=== PATIENT | female | born 1980 | race Caucasian/White ===

== ENCOUNTER 2020-07-04 13:25 | Emergency (ER) | payer MEDICAID, SELFPAY ==
[2020-07-04 14:31] VITALS: BP 167/91; PULSE 81; RESP 16; TEMP 36.9; O2SAT 98; BMI 52.0
[2020-07-04 15:24] VITALS: BP 166/80; PULSE 73; RESP 16; TEMP 37.1; O2SAT 100
--- NOTE | 2020-07-04 15:34 | ED_ITS ---
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 MD Complaint: ear pain and ear discharge Location: left ear Duration: constant Severity: mild Relieving factors: nothing Exacerbating factors: nothing Discharge from ear: yes - clear (clear yellow ) Treatment prior to arrival: eardrops (analgesic ear drops ) Related Data Previous Rx's Medication Instructions Recorded acetaminophen 650 mg PO Q6H PRN #20 cap 07/04/20 amoxicillin 500 mg PO BID 7 Days #14 tab 07/04/20 ciprofloxacin-dexamethasone 4 drp OTIC (EARS) BID 7 Days #7.5 07/04/20 [Ciprodex] ml ibuprofen 600 mg PO Q8H PRN #20 tab 07/04/20 Allergies Allergy/AdvReac Type Severity Reaction Status Date / Time No Known Allergies Allergy Verified 07/04/20 14:30 Review of Systems Review of Systems: Yes all other systems are reviewed and are negative Constitutional: Constitutional: Reports no additional constitutional complaints, Denies body ache(s), Denies chills, Denies fever(s), Denies hea dache(s) and Denies weakness Eyes: Eyes: Reports no additional eye complaints and Denies change in vision ENT: Reports system reviewed and no additional complaints, except as documented, Denies dizziness, Reports ear discharge, Reports otalgia, Denies headache(s), Denies nasal congestion, Denies nasal discharge and Denies neck pain Cardiovascular: Cardiovascular: Reports no additional cardiovascular complaints, Denies chest pain, Denies leg edema and Denies dyspnea Respiratory: Respiratory: Reports no additional respiratory complaints, Denies cough and Denies dyspnea Gastrointestinal: Gastrointestinal: Reports no additional gastrointestinal complaints, Denies abdominal pain, Denies diarrhea, Denies nausea and Denies vomiting Genitourinary: Genitourinary: Reports no additional female genitourinary complaints and Denies urinary incontinence Musculoskeletal: Musculoskeletal: Reports no additional musculoskeletal complaints, Denies back pain, Denies arthralgias, Denies joint swelling, Denies neck pain, Denies numbness and Denies tingling Integumentary/Breasts: Skin/Breast: Reports system reviewed and no additional complaints, except as docu and Denies rash Neurologic: Reports system reviewed and no additional complaints, except as documented, Denies Abnormal speech present, Denies dizziness, Denies headache(s), Denies numbness, Denies tingling and Denies weakness PMFSH Past Medical History Attestation statement: The following information was validated with the patient. Source: obtained from family and nursing notes reviewed Medical History No known health problems No known health problems Social History Social History Alcohol intake: never Smoked in Last 30 Days: No Use of substances other than those prescribed or required for medical reasons: No Advance Directives: No Advance Directives Information Provided: Yes Physical Exam Vital Signs: Vital Signs: Vital Signs Temp Pulse Resp BP Pulse Ox 07/04/20 15:24 98.8 F 73 16 166/80 H 100 07/04/20 14:31 98.4 F 81 16 167/91 H 98 Body Mass Index 52.0 Const: General: cooperative, healthy appearing, comfortable and no acute distress Orientation/consciousness: patient oriented x3 Limitations: no limitations HENMT: Other: left ear canal with swelling and noted drainage. Head: Yes normal to inspection Ears: hearing grossly normal bilaterally, external ears normal, mastoids normal, no periauricular adenopathy and TM abnormal (Left ) bulging, erythematous, with fluid behind the TM and with loss of landmarks General nose exam: Normal external nose present Face and sinus: Yes normal facial exam Mouth: Normal oral and palatal mucosa present Throat: Yes posterior oropharynx normal Eyes: General: appearance normal, both eyes and all related structures Pupils: Equal, round and reactive pupils present Neck: Neck: Yes normal visual inspection Chest: Chest palpation & inspection: normal inspection of the chest Resp: Effort & Inspection: normal respiratory effort Auscultation: clear to auscultation bilaterally Cardio: Rate: regular rate Rhythm: regular rhythm Peripheral pulses: Peripheral pulses 2+ throughout GI: Inspection: Yes normal to inspection Palpation (GI): Soft to palpation and nontender Auscultation: normal bowel sounds Back/Spine/Pelvis: Thoracic/Lumbar Spine: thoracic and lumbar spine normal to inspection Skin: General skin exam: no rashes or lesions noted Neuro: General: patient oriented x3, no focal motor deficits and normal sensation to monofilament Cranial nerves: Yes Equal, round and reactive pupils present Cognition (Neuro): normal cognition Speech: No Abnormal speech present Gait exam (Neuro): Normal gait present Motor exam (neuro): 5/5 motor strength present throughout Extrem: General: Yes normal to inspection Course Course Course Narrative: L AOM, left otitis externa. Discharge Plan Discharge Clinical Impression: Otitis externa Qualifiers: Otitis externa type: unspecified type Chronicity: acute Laterality: left Qualified Code(s): H60.502 - Unspecified acute noninfective otitis externa, left ear Otitis media Qualifiers: Otitis media type: serous Chronicity: acute Laterality: left Recurrence: non- recurrent Qualified Code(s): H65.02 - Acute serous otitis media, left ear Patient Disposition: Home, Self-Care Instructions: Otitis Externa (ED), Ear Infection (ED), Serous Otitis Media (ED) Prescriptions: New amoxicillin 500 mg tablet 500 mg PO BID 7 Days Qty: 14 RF: 0 ibuprofen 600 mg tablet 600 mg PO Q8H PRN (Reason: fever or pain) Qty: 20 RF: 0 acetaminophen 325 mg capsule 650 mg PO Q6H PRN (Reason: fever or pain) Qty: 20 RF: 0 ciprofloxacin-dexamethasone [Ciprodex] 0.3-0.1 % drops,suspension 4 drp otic (ears) BID 7 Days Qty: 7.5 RF: 0 Referrals: Physician,None [Primary Care Provider] - 2 days
== END 2020-07-04 16:00 | disposition home or self-care (01) ==
PROVIDERS: Emergency Provider Emergency Medicine
DX: H60.502 Unspecified acute noninfective otitis externa, left ear (principal); H65.02 Acute serous otitis media, left ear; H92.02 Otalgia, left ear; Z79.899 Other long term (current) drug therapy
CPT/HCPCS: 99284

== ENCOUNTER 2022-10-25 07:46 | Emergency (ER) | payer MEDICAID, OTHER, SELFPAY ==
--- NOTE | ~2022-10-25 | XR_ITS ---
EXAMINATION: XR CHEST CLINICAL INFORMATION: Cough COMPARISON: None TECHNIQUE: 2 views of the chest were obtained. FINDINGS: Lungs are well expanded and clear. No pulmonary mass, consolidation or pleural effusion. There appears to be mild thickening of bronchial muse in the perihilar regions. The cardiomediastinal silhouette has normal size and contour. The pulmonary vascular pattern is normal. The visualized bones and upper abdomen are normal. XR/XR chest 2V IMPRESSION: * No evidence of pneumonia. * There is an equivocal finding of mild thickening of bronchial muse in this patient with history of cough.
[2022-10-25 07:53] VITALS: BP 157/74; PULSE 91; RESP 18; TEMP 36.6; O2SAT 98; BMI 31.3
[2022-10-25 08:28] LABS: COVID-19 Test Positive (Negative); IDNOW Serial# 16C4AD1C
[2022-10-25 08:33] LABS: IDNOW Serial# BCCEAD1C; Influenza A Negative (Negative); Influenza B2 Negative (Negative)
--- NOTE | 2022-10-25 08:40 | ED_ITS ---
HPI - General Adult General Chief complaint: Upper Respiratory Symptoms Stated complaint: Cough/Chest congestion Time Seen by Provider: 10/25/22 08:20 Source: patient Mode of arrival: ambulatory Limitations: no limitations History of Present Illness HPI narrative: Patient is a 42 year old assigned female at with no reported medical history presenting to the emergency department today with a cough, congestion, body aches, fever, and sore throat. Patient states that for the last 10 days she has been having a cough, congestion, body aches, fever, and a sore throat. Patient denies any dizziness, lightheadedness, abdominal pain, nausea, vomiting, chills, blurry vision, double vision, loss of vision, chest pain, difficulty breathing, shortness of breath, back pain, night sweats, pain with urination, increased urinary frequency, increased urinary urgency, blood in her urine or stool, syncope or a near syncopal episode, recent trauma or falls, bowel incontinence, bladder incontinence, bowel retention, bladder retention, or any other complaints at this time. Onset (ago): day(s) (10) Severity: mild Severity scale (1-10): 3 Relieving factors: none Exacerbating factors: none Associated symptoms: cough and fever/chills Treatments prior to arrival: none Related Data Previous Rx's Medication Instructions Recorded acetaminophen 325 mg capsule 650 mg PO Q6H PRN fever or pain 07/04/20 #20 caps amoxicillin 500 mg tablet 500 mg PO BID 7 days #14 tabs 07/04/20 ciprofloxacin 0.3 %-dexamethasone 4 drp otic (ears) BID 7 days #7.5 07/04/20 0.1 % ear drops,suspension mL (Ciprodex) ibuprofen 600 mg tablet 600 mg PO Q8H PRN fever or pain 07/04/20 #20 tabs benzonatate 100 mg capsule 100 mg PO BID PRN cough 7 days #14 10/25/22 caps doxycycline hyclate 100 mg tablet 100 mg PO BID 7 days #14 tabs 10/25/22 prednisone 20 mg tablet 20 mg PO DAILY 7 days #7 tabs 10/25/22 Allergies Allergy/AdvReac Type Severity Reaction Status Date / Time No Known Allergies Allergy Verified 07/04/20 14:30 Review of Systems Constitutional: Constitutional: Reports no additional constitutional complaints, Reports body ache(s), Denies chills, Reports fever(s) and Denies night sweats Eyes: Eyes: Reports no additional eye complaints, Denies blurry vision, Denies change in vision, Denies diplopia, Denies eye discharge, Denies loss of vision and Denies eye pain ENT: Denies dizziness, Reports nasal congestion and Reports sore throat Cardiovascular: Cardiovascular: Reports no additional cardiovascular complaints, Denies chest pain, Denies lightheadedness, Denies Loss of Consciousness and Denies dyspnea Respiratory: Respiratory: Reports no additional respiratory complaints, Reports cough and Denies dyspnea Gastrointestinal: Gastrointestinal: Reports no additional gastrointestinal complaints, Denies abdominal pain, Denies melena, Denies hematochezia, Denies change in bowel habits and Denies change in stool character Genitourinary: Genitourinary: Denies hematuria, Denies urinary frequency, Denies dysuria, Denies urinary incontinence, Denies urinary hesitancy and Denies urinary urgency Musculoskeletal: Musculoskeletal: Reports no additional musculoskeletal complaints, Denies numbness and Denies tingling Neurologic: Denies dizziness, Denies loss of vision, Denies numbness and Denies tingling Psychiatric: Psychiatric: Reports no additional psychiatric complaints Endocrine: Endocrine: Reports no additional endocrine complaints Hematologic/Lymphatic: Hematologic/Lymphatic: Reports no additional hematologic/lymphatic complaints Allergic/Immunologic: Allergic/Immunologic: Reports no additional allergic/immunologic complaints PMFSH Past Medical History Attestation statement: The following information was validated with the patient. Source: old records reviewed and nursing notes reviewed Medical History No known health problems No known health problems Social History Social History Alcohol intake: never Advance Directives: No Advance Directives Information Provided: Yes Physical Exam ED Vital Signs: Vital Signs - 24 hr 10/25/22 07:53 Temperature 97.8 F Pulse Rate 91 Respiratory Rate 18 Blood Pressure 157/74 H Pulse Oximetry 98 Oxygen Delivery Method Room Air BMI result Body Mass Index 31.3 Const General: cooperative, no acute distress, alert and awake Nutritional Appearance: well nourished Orientation/consciousness: patient oriented x3 Limitations: no limitations HENMT Head: Yes normal to inspection and Yes atraumatic Ears: hearing grossly normal bilaterally and external ears normal General nose exam: Normal external nose present, no nasal discharge noted and no epistaxis Face and sinus: Yes normal facial exam, No abrasion and No laceration Mouth: Normal oral and palatal mucosa present, no drooling and no muffled voice Eyes General: appearance normal, both eyes and all related structures Periorbital: periorbital findings normal Eyelids: Yes eyelids normal Conjunctivae: conjunctivae normal Pupils: Equal, round and reactive pupils present EOM: EOMs intact bilaterally Neck Neck: Yes normal visual inspection, Yes full ROM and Yes no lymphadenopathy Chest Chest palpation & inspection: normal inspection of the chest Resp Effort & Inspection: normal respiratory effort and able to speak in complete sentences Auscultation: clear to auscultation bilaterally Cardio Rate: regular rate Rhythm: regular rhythm GI Inspection: Yes normal to inspection Palpation (GI): Soft to palpation, not firm, nontender, no guarding and not rigid Neuro General: patient oriented x3 and moves all extremities Cranial nerves: Yes Equal, round and reactive pupils present Cognition (Neuro): normal cognition Motor exam (neuro): 5/5 motor strength present throughout Sensory Exam: Normal double simultaneous stimulation for sensation Coordination: [id number] test normal Extrem General: Yes normal to inspection, Yes full ROM and Yes capillary refill normal Psych Appearance: grossly normal Mental Status: mental status grossly normal Affect: normal affect Attitude: cooperative Thought process: Normal thought process present Thought content: Normal thought content present Insight: Good insight present (Psych) Medical Decision Making Medical Decision Making MDM Narrative: Patient is a 42 year old assigned female at with no reported medical history presenting to the emergency department today with a cough, congestion, body aches, fever, and a sore throat. Patient's physical exam was unremarkable. Patient's COVID-19 test was positive. Patient's chest x-ray was negative. Given the length of the patient's symptoms and persistent cough with intermittent yellow sputum production, I'll cover for super imposed bacterial infection. I explained my physical exam findings as well as all test results to the patient. I answered all questions asked by the patient. I stressed the importance of the patient taking her medication as prescribed. I stressed the importance of the patient following up with her primary care provider. I stressed the importance of the patient returning to the emergency department immediately if her symptoms were to worsen or if she were to develop any dizziness, shortness of breath, difficulty breathing, chest pain, blurry vision, loss of vision, nausea, vomiting, abdominal pain, fever, chills, back pain, or any other complaints. Patient verbalized agreement and understanding with this treatment plan and discharge. Differential Diagnosis Differential Diagnoses: The differential diagnosis associated with the presentation includes COVID-19, super imposed bacterial infection Lab Data MDM Lab Attestation statement: I reviewed the patient's lab results. Labs: Lab Results 10/25/22 10/25/22 10/25/22 Range/Units 00:26 07:58 07:58 COVID-19 ([facility]) Positive A (Negative) COVID-19 Clin Com See Note Influenza Type A ([facility]) Negative (Negative) Influenza Type B ([facility]) Negative (Negative) Influenza A & B Note See Note S. pyogenes GrpA [facility] Negative (Negative) Radiology Impression Radiologist Impression: My interpretation is in agreement with the radiologist's impression of this imaging study. EXAMINATION: XR CHEST CLINICAL INFORMATION: Cough COMPARISON: None TECHNIQUE: 2 views of the chest were obtained. FINDINGS: Lungs are well expanded and clear. No pulmonary mass, consolidation or pleural effusion. There appears to be mild thickening of bronchial muse in the perihilar regions. The cardiomediastinal silhouette has normal size and contour. The pulmonary vascular pattern is normal. The visualized bones and upper abdomen are normal. XR/XR chest 2V IMPRESSION: *? No evidence of pneumonia. *? There is an equivocal finding of mild thickening of bronchial muse in this patient with history of cough. Dictated By: Willy Leo MD Signed By: Electronically signed by Willy Loe MD 10/25/22 0900 Discharge Plan Discharge Clinical Impression: COVID-19 Patient Disposition: Home, Self-Care Instructions: COVID-19 (Coronavirus Disease 2019) (ED) Additional Instructions: Follow up with your primary care provider. Return to the emergency department immediately if your symptoms worsen or if you develop any dizziness, shortness of breath, difficulty breathing, chest pain, blurry vision, loss of vision, nausea, vomiting, abdominal pain, fever, chills, back pain, or any other complaints. Prescriptions: New benzonatate 100 mg capsule 100 mg PO BID PRN (Reason: cough) 7 Days Qty: 14 0RF prednisone 20 mg tablet 20 mg PO DAILY 7 Days Qty: 7 0RF doxycycline hyclate 100 mg tablet 100 mg PO BID 7 Days Qty: 14 0RF No Action amoxicillin 500 mg tablet 500 mg PO BID 7 Days Qty: 14 0RF ibuprofen 600 mg tablet 600 mg PO Q8H PRN (Reason: fever or pain) Qty: 20 0RF acetaminophen 325 mg capsule 650 mg PO Q6H PRN (Reason: fever or pain) Qty: 20 0RF ciprofloxacin-dexamethasone [Ciprodex] 0.3-0.1 % drops,suspension 4 drp otic (ears) BID 7 Days Qty: 7.5 0RF Referrals: Latasha Bowen MD [Primary Care Provider] - Stand Alone Forms: Work/School Release Interventions: ED Discharge Assessment Last Done: 10/25/22 09:24 Print Language: Japanese
[2022-10-25 08:48] LABS: IDNOW Serial# 08D9AD1C; Strep A Nucleic Acid Negative (Negative)
== END 2022-10-25 09:24 | disposition home or self-care (01) ==
PROVIDERS: Emergency Provider Emergency Medicine; PCP Internal Medicine
DX: U07.1 COVID-19 (principal); R05.9 Cough, unspecified; R50.9 Fever, unspecified; M79.10 Myalgia, unspecified site; Z79.899 Other long term (current) drug therapy
CPT/HCPCS: 71046; 87502; 87635; 87651; 99282; 99283

== ENCOUNTER 2023-06-15 17:54 | Emergency (ER) | payer MEDICAID, OTHER, SELFPAY ==
[2023-06-15 18:13] VITALS: BP 187/79; PULSE 107; RESP 20; TEMP 37.4; O2SAT 99; BMI 29.5
--- NOTE | 2023-06-15 18:13 | ED_ITS ---
HPI - General Adult General Chief complaint: Wound/Laceration Stated complaint: laceration right hand Time Seen by Provider: 06/15/23 19:10 Source: patient Mode of arrival: ambulatory Limitations: no limitations History of Present Illness HPI narrative: Patient comes to the emergency room complaining of a laceration to the right thumb palmar aspect. Patient states that she was cutting vegetables and accidentally cut her finger. Patient states that her last tetanus shot was over 10 years ago in [place]. Otherwise, patient has no other injuries. Patient complaining of localized pain. Patient able to flex and extend the thumb. Related Data Previous Rx's Medication Instructions Recorded acetaminophen 325 mg capsule 650 mg (2 x 325 mg) PO Q6H PRN 07/04/20 fever or pain #20 caps amoxicillin 500 mg tablet 500 mg PO BID 7 days #14 tabs 07/04/20 ciprofloxacin 0.3 %-dexamethasone 4 drp otic (ears) BID 7 days #7.5 07/04/20 0.1 % ear drops,suspension mL (Ciprodex) ibuprofen 600 mg tablet 600 mg PO Q8H PRN fever or pain 07/04/20 #20 tabs benzonatate 100 mg capsule 100 mg PO BID PRN cough 7 days #14 10/25/22 caps doxycycline hyclate 100 mg tablet 100 mg PO BID 7 days #14 tabs 10/25/22 prednisone 20 mg tablet 20 mg PO DAILY 7 days #7 tabs 10/25/22 Allergies Allergy/AdvReac Type Severity Reaction Status Date / Time No Known Allergies Allergy Verified 07/04/20 14:30 Review of Systems Review of Systems: Constitutional : No Weight loss, No Fever, No Chills, No Night Sweats, No Fatigue, No Malaise ENT/Mouth : No Hearing loss, No Ear Pain, No Nasal Congestion, No Sinus Pain, No Hoarseness, No sore throat, No Rhinorrhea, No Swallowing Difficulty Eyes: No Eye Pain, No Swelling, No Redness, No Foreign Body, No Discharge, No Vision Changes Cardiovascular : No Chest Pain, No SOB, No Dyspnea on Exertion, No Orthopnea, No Edema, No Palpitations Respiratory : No Cough, No Sputum, No Wheezing, No Smoke Exposure, No Dyspnea Gastrointestinal : No Nausea, No Vomiting, No Diarrhea, No Constipation, No abdominal Pain, No Hematochezia, No Melena Genitourinary : no irregular bleeding, No Dysuria, No Urinary Frequency, No Hematuria, No Urinary Incontinence, No Urgency, No Flank Pain, No Urinary Flow Changes, No Hesitancy Musculoskeletal : No joint pain, No Myalgias, No Joint Swelling Skin : Laceration to the palmar aspect of the right hand/right thumb Neuro : No Weakness, No Numbness, No Paresthesias, No Loss of Consciousness, No Dizziness, No Headache Psych : No Anxiety/Panic, No Depression, No SI/HI/AH/VH, No Social Issues, Heme/Lymph: No Bruising, No Bleeding,No Lymphadenopathy Endocrine : No Polyuria, No Polydipsia, No Temperature Intolerance [facility] Past Medical History Medical History No known health problems No known health problems Social History Social History Alcohol intake: never Smoked in Last 30 Days: No Use of substances other than those prescribed or required for medical reasons: No Advance Directives: No Advance Directives Information Provided: No Patient : No Physical Exam ED Vital Signs: Vital Signs - 24 hr 06/15/23 18:13 Temperature 99.4 F Pulse Rate 107 H Respiratory Rate 20 Blood Pressure 187/79 H Pulse Oximetry 99 Oxygen Delivery Method Room Air BMI result Body Mass Index 29.5 Const Other: Appearance: Alert. Oriented X3. No acute distress. Eyes: Pupils equal, round and reactive to light. ENT: Pharynx normal. Neck: Normal inspection. Neck supple. No lymph nodes noted. No crepitus CVS: Normal heart rate and rhythm. Pulses normal. Normal S1 and S2 Respiratory: No respiratory distress. Breath sounds normal. No Wheezing. No rales Abdomen: Soft and nontender. No rigidity. No distention. Skin: Skin warm and dry. There is a 1 mm deep laceration on the palmar aspect of the right thumb. Bleeding controlled Extremities: No lower extremity edema. No Lacerations. No Rash Neuro: Oriented X 3. No motor deficit. No sensory deficit. Moving all extremities. No slurred speech. CN 2 through 12 grossly intact Psych: calm, cooperative, normal affect Course Course Course Narrative: This is a rapid medical exam: Additional HPI, ROS, PE not included below will be deferred to primary provider. Patient is a 42-year-old right-hand dominant female presenting to the emergency department with laceration to right hand which occurred around 4pm today. She cut her thumb on a vegetable spiralizer. States Tdap was 10 years ago in [place]. Does not appear to involve nail. Plan: Tdap, will need sutures Medications Administered Discontinued Medications Generic Name Dose Route Start Last Admin Trade Name Freq PRN Reason Stop Dose Admin Diphtheria/Tetanus/Acell Pertussis 0.5 ml 06/15/23 18:15 06/15/23 19:36 Diphth,Pertus(Acell),Tet Adult 0.5 Ml Syringe IM 06/15/23 18:16 0.5 ml .ONCE ONE Administration Medical Decision Making Medical Decision Making MDM Narrative: -I discussed with the patient that she does not need stitches. Under a bloodless field, I examined the finger, the laceration itself is not deep, less than 1 mm. Patient's hand was cleaned, then I applied skin glue to the injury and put Steri-Strips. -patient received 1 dose of IM Tdap booster -patient ready for discharge Discharge Plan Discharge Clinical Impression: Laceration of finger Patient Disposition: Home, Self-Care Instructions: Laceration (ED) Additional Instructions: Please follow-up with your primary care physician tomorrow. If you have any worsening or new symptoms, please return to the emergency room or call 911 Prescriptions: No Action amoxicillin 500 mg tablet 500 mg PO BID 7 Days Qty: 14 0RF ibuprofen 600 mg tablet 600 mg PO Q8H PRN (Reason: fever or pain) Qty: 20 0RF acetaminophen 325 mg capsule 650 mg PO Q6H PRN (Reason: fever or pain) Qty: 20 0RF ciprofloxacin-dexamethasone [Ciprodex] 0.3-0.1 % drops,suspension 4 drp otic (ears) BID 7 Days Qty: 7.5 0RF benzonatate 100 mg capsule 100 mg PO BID PRN (Reason: cough) 7 Days Qty: 14 0RF prednisone 20 mg tablet 20 mg PO DAILY 7 Days Qty: 7 0RF doxycycline hyclate 100 mg tablet 100 mg PO BID 7 Days Qty: 14 0RF
== END 2023-06-15 19:54 | disposition home or self-care (01) ==
PROVIDERS: Emergency Provider Emergency Medicine
DX: S61.011A Laceration without foreign body of right thumb without damage to nail, initial encounter (principal); W45.8XXA Other foreign body or object entering through skin, initial encounter; Y93.G1 Activity, food preparation and clean up; Y92.000 Kitchen of unspecified non-institutional (private) residence as the place of occurrence of the external cause; Y99.9 Unspecified external cause status
CPT/HCPCS: 12001; 90471; 90715; 99284

== ENCOUNTER 2023-09-28 13:44 | Emergency (ER) | payer MEDICAID, OTHER, SELFPAY ==
--- NOTE | ~2023-09-28 | XR_ITS ---
EXAMINATION: XR CHEST CLINICAL INFORMATION: Shortness of breath COMPARISON: 10/25/2022 TECHNIQUE: 2 views of the chest were obtained. FINDINGS: The heart and pulmonary vessels appear normal. Again noted is mild peribronchial thickening and some mild prominence of the pulmonary arteries bilaterally. No infiltrates, effusions or lung masses are seen. Compared with the prior study, there's been no significant interval change. XR/XR chest 2V IMPRESSION: No acute intrathoracic disease. Mild peribronchial thickening and mild prominence of the pulmonary arteries.
[2023-09-28 13:54] VITALS: BP 187/78; PULSE 95; RESP 18; TEMP 37; O2SAT 98; BMI 29.5
--- NOTE | 2023-09-28 13:54 | ECG_ITS ---
Test Reason : pain Blood Pressure : / mmHG Vent. Rate : 091 BPM Atrial Rate : 091 BPM P-R Int : 162 ms QRS Dur : 082 ms QT Int : 364 ms P-R-T Axes : 041 038 050 degrees QTc Int : 447 ms Normal sinus rhythm Possible Left atrial enlargement Borderline ECG No previous ECGs available Referred By: Vipin Kerns Electronically Signed By:JONE MCKINNON
--- NOTE | 2023-09-28 13:54 | ED_ITS ---
HPI - General Adult General Chief complaint: Upper Respiratory Symptoms Stated complaint: Not feeling well 2 weeks Time Seen by Provider: 09/28/23 18:54 Source: patient, RN notes reviewed and old records reviewed Mode of arrival: ambulatory Limitations: no limitations History of Present Illness HPI narrative: 43-year-old female presents for evaluation of cough. She reports her symptoms started 2 and half weeks ago new year's day She has had a cough with no significant shortness of breath Her cough is nonproductive She complains of weakness, body aches No fevers or chills Denies any recent travel or sick contacts Related Data Previous Rx's Medication Instructions Recorded acetaminophen 325 mg capsule 650 mg (2 x 325 mg) PO Q6H PRN 07/04/20 fever or pain #20 caps amoxicillin 500 mg tablet 500 mg PO BID 7 days #14 tabs 07/04/20 ciprofloxacin 0.3 %-dexamethasone 4 drp otic (ears) BID 7 days #7.5 07/04/20 0.1 % ear drops,suspension mL (Ciprodex) ibuprofen 600 mg tablet 600 mg PO Q8H PRN fever or pain 07/04/20 #20 tabs benzonatate 100 mg capsule 100 mg PO BID PRN cough 7 days #14 10/25/22 caps doxycycline hyclate 100 mg tablet 100 mg PO BID 7 days #14 tabs 10/25/22 prednisone 20 mg tablet 20 mg PO DAILY 7 days #7 tabs 10/25/22 azithromycin 250 mg tablet See Rx Instructions PO .COMPLEX #6 09/28/23 tabs prednisone 20 mg tablet 40 mg (2 x 20 mg) PO DAILY #10 tabs 09/28/23 Allergies Allergy/AdvReac Type Severity Reaction Status Date / Time No Known Allergies Allergy Verified 09/28/23 13:54 Review of Systems 2 Constitutional: Constitutional: Reports body ache(s), Denies chills, Denies fever(s), Reports malaise and Reports weakness Eyes: Eyes: Denies blurry vision ENT: Denies sore throat Cardiovascular: Cardiovascular: Denies chest pain and Denies dyspnea Respiratory: Respiratory: Reports cough and Denies dyspnea Gastrointestinal: Gastrointestinal: Denies abdominal pain, Denies nausea and Denies vomiting Musculoskeletal: Musculoskeletal: Denies back pain Integumentary/Breasts: Skin/Breast: Denies rash Neurologic: Reports weakness PMFSH Past Medical History Onset Date is defined in the Problem List Problems that require an onset date and time if occurred within 24 hrs of arrival to the ED Aortic Dissection and Rupture; Neurologic impairment; Cardiopulmonary Arrest; Endotracheal Intubation; Insertion or Replacement of Mechanical Circulatory Assist Device Medical History No known health problems No known health problems Social History Social History Alcohol intake: never Physical Exam ED Vital Signs: Vital Signs - 24 hr 09/28/23 13:54 09/28/23 18:41 Temperature 98.6 F 98.8 F Pulse Rate 95 87 Respiratory Rate 18 17 Blood Pressure 187/78 H 185/66 H Pulse Oximetry 98 98 Oxygen Delivery Method Room Air Room Air BMI result Body Mass Index 29.5 Const General: healthy appearing, comfortable, no acute distress, alert and awake Nutritional Appearance: well nourished Orientation/consciousness: patient oriented x3 HENMT Head: Yes normocephalic and Yes atraumatic Eyes Eyelids: Yes eyelids normal Conjunctivae: conjunctivae normal Sclerae: sclerae normal Corneas: corneas normal Pupils: Equal, round and reactive pupils present EOM: EOMs intact bilaterally Neck Neck: Yes full ROM Resp Effort & Inspection: normal respiratory effort, able to speak in complete sentences, no audible wheezes and not labored Auscultation: clear to auscultation bilaterally Cardio Rate: regular rate Rhythm: regular rhythm Skin General skin exam: elasticity normal Neuro General: patient oriented x3 Cranial nerves: Yes Equal, round and reactive pupils present and Yes Bilaterally intact EOM present Cognition (Neuro): normal cognition Extrem Other: Moving all extremities well without any obvious deformities Course Course Course Narrative: RME- 43-year-old female presents for evaluation of shortness of breath, cough, malaise for the last 2 weeks. Medical Decision Making Medical Decision Making MDM Narrative: 43-year-old female presents for evaluation cough, weakness. Patient's workup is significant for an x-ray shows mild bronchial wall thickening, this is consistent with her history of coughing. X-ray also shows mild prominence of the pulmonary arteries, the patient is not tachycardic or hypoxic to suggest PE. Her labs do not show any significant abnormalities. EKG shows normal sinus rhythm with a rate of 91 beats per minute. No ischemic changes. Viral swabs negative for COVID and influenza. Given her symptoms persistent for over 2 weeks we will treat with azithromycin and prednisone. Differential Diagnosis Differential Diagnoses: The differential diagnosis associated with the presentation includes Bronchitis Pneumonia Influenza COVID-19 Acute cough Postnasal drip Lab Data MDM Lab Attestation statement: I reviewed the patient's lab results. No leukocytosis. The patient has a mild anemia. No electrolyte abnormalities. 09/28/23 14:13 09/28/23 14:13 Labs: Lab Results 09/28/23 09/28/23 Range/Units 14:06 14:13 WBC 8.4 (4.8-10.8) X10*3/uL RBC 3.84 L (4.20-5.50) X10*6/uL Hgb 11.3 L (12.0-16.0) g/dl Hct 33.4 L (37.0-47.0) % MCV 87.0 (80.0-98.0) fL MCH 29.4 (27.0-33.0) pg MCHC 33.8 (31.0-35.0) g/dl RDW 12.8 (11.0-16.0) % Plt Count 246 (160-400) X10*3/uL MPV 9.3 L (9.4-12.3) fL Immature Gran % (Auto) 0.5 H (0.0-0.4) % Neut % (Auto) 66.6 (45-73) % Lymph % (Auto) 23.6 (20-40) % Murray % (Auto) 5.5 (2-11) % Eos % (Auto) 3.3 (0-4) % Baso % (Auto) 0.5 (0-2) % Lymph # (Auto) 2.0 (1.2-4.9) X10*3/uL Murray # (Auto) 0.5 (0.1-1.2) X10*3/uL Eos # (Auto) 0.3 (0.0-0.4) X10*3/uL Baso # (Auto) 0.0 (0.0-0.2) X10*3/uL Abs Immat Gran (auto) 0.04 H (0.00-0.03) X10*3/uL Absolute Neuts (auto) 5.6 (2.0-8.3) x10*3/uL Absolute Nucleated RBC 0.000 (0.0-0.012) X10*3/uL Nucleated RBC % (auto) 0.0 (0.0-0.2) /100WBC Sodium 138 (135-145) mmol/L Potassium 4.0 (3.3-5.1) mmol/L Chloride 107 (96-108) mmol/L Carbon Dioxide 25 (22-29) mmol/L Anion Gap 10 L (12-20) BUN 15 (9-16) mg/dL Creatinine 0.79 (0.5-1.4) mg/dL Estim Creat Clear Calc 107.9 Estimated GFR > 60 Random Glucose 93 (60-115) mg/dL Calcium 9.3 (8.4-10.2) mg/dL Total Bilirubin 0.1 (0.0-1.0) mg/dL AST 16 (5-31) U/L ALT 14 (0-31) U/L Alkaline Phosphatase 52 (39-117) U/L Total Protein 7.2 (6.5-8.0) g/dL Albumin 4.0 (3.5-5.0) g/dL Lipase 19 (8-78) U/L COVID-19 (JAC) Negative (Negative) COVID-19 Clin Com See Note Influenza Type A (HIMANSHU) Negative (Negative) Influenza Type B (HIMANSHU) Negative (Negative) Influenza A & B Note See Note Independent Interpretation I performed an independent interpretation of an: EKG (As above, sinus rhythm 91 beats per minute.) and Plain X-Ray (No focal infiltrates) Radiology Impression Discussion of test interpretation with radiology: I have reviewed the radiologist's reading. (Mild bronchial wall thickening, mild prominence of pulmonary arteries) Discharge Plan Discharge Clinical Impression: Bronchitis Patient Disposition: Home, Self-Care Instructions: Acute Bronchitis (ED) Additional Instructions: Your x-ray showed mild bronchitis Your blood work and EKG were reassuring Take the antibiotics and steroids as prescribed Follow-up with your primary doctor Return for new or worsening symptoms Prescriptions: New azithromycin 250 mg tablet See Rx Instructions .ROUTE .COMPLEX Qty: 6 0RF Rx Instructions: For 250 mg dose pack: take 500 mg today (day 1), then 250 mg for 4 days (days 2-5) prednisone 20 mg tablet 40 mg PO DAILY Qty: 10 0RF No Action amoxicillin 500 mg tablet 500 mg PO BID 7 Days Qty: 14 0RF ibuprofen 600 mg tablet 600 mg PO Q8H PRN (Reason: fever or pain) Qty: 20 0RF acetaminophen 325 mg capsule 650 mg PO Q6H PRN (Reason: fever or pain) Qty: 20 0RF ciprofloxacin-dexamethasone [Ciprodex] 0.3-0.1 % drops,suspension 4 drp otic (ears) BID 7 Days Qty: 7.5 0RF benzonatate 100 mg capsule 100 mg PO BID PRN (Reason: cough) 7 Days Qty: 14 0RF prednisone 20 mg tablet 20 mg PO DAILY 7 Days Qty: 7 0RF doxycycline hyclate 100 mg tablet 100 mg PO BID 7 Days Qty: 14 0RF Interventions: ED Discharge Assessment Last Done: 09/28/23 18:58
[2023-09-28 14:19] LABS: MANUAL DIFF FLAG NO
[2023-09-28 14:25] LABS: Basophils Percent Auto 0.5 % (0-2); Eosinophils Absolute Auto 0.3 X10*3/uL (0.0-0.4); Eosinophils Percent Auto 3.3 % (0-4); Hematocrit 33.4 % (37.0-47.0); Hemoglobin 11.3 g/dl (12.0-16.0); Imm Gran Abs Auto 0.04 X10*3/uL (0.00-0.03); Imm Gran Pct Auto 0.5 % (0.0-0.4); Lymphocytes Percent Auto 23.6 % (20-40); Mean Corpuscular HGB Conc 33.8 g/dl (31.0-35.0); Mean Corpuscular Hemoglobin 29.4 pg (27.0-33.0); Mean Platelet Volume 9.3 fL (9.4-12.3); Monocytes Absolute Auto 0.5 X10*3/uL (0.1-1.2); Monocytes Percent Auto 5.5 % (2-11); Neutrophils Absolute Auto 5.6 x10*3/uL (2.0-8.3); Neutrophils Percent Auto 66.6 % (45-73); Platelet Count 246 X10*3/uL (160-400); Red Blood Count 3.84 X10*6/uL (4.20-5.50); Red Cell Distribution Width 12.8 % (11.0-16.0); White Blood Count 8.4 X10*3/uL (4.8-10.8)
[2023-09-28 14:33] LABS: Alanine Aminotransferase 14 U/L (0-31); Alkaline Phosphatase 52 U/L (39-117); Anion Gap 10 (12-20); Aspartate Amino Transferase 16 U/L (5-31); Bilirubin Total 0.1 mg/dL (0.0-1.0); Blood Urea Nitrogen 15 mg/dL (9-16); Calcium 9.3 mg/dL (8.4-10.2); Carbon Dioxide 25 mmol/L (22-29); Chloride 107 mmol/L (96-108); Creatinine Clr Calc Pharmacy 107.9; Estimated Glomerular Filt Rate > 60; Glucose Random 93 mg/dL (60-115); Lipase 19 U/L (8-78); Sodium 138 mmol/L (135-145); Total Protein 7.2 g/dL (6.5-8.0)
[2023-09-28 14:40] LABS: COVID-19 Test Negative (Negative); IDNOW Serial# 58CA691E; IDNOW Serial# 9DB6401D; Influenza A Negative (Negative); Influenza B2 Negative (Negative)
[2023-09-28 18:41] VITALS: BP 185/66; PULSE 87; RESP 17; TEMP 37.1; O2SAT 98
== END 2023-09-28 19:02 | disposition home or self-care (01) ==
LOC: HO.ED 19:02
PROVIDERS: Physician Assistant; Emergency Provider Internal Medicine; PCP Internal Medicine
DX: J40 Bronchitis, not specified as acute or chronic (principal); R05.9 Cough, unspecified; R53.1 Weakness; M79.10 Myalgia, unspecified site; Z11.52 Encounter for screening for COVID-19; Z20.828 Contact with and (suspected) exposure to other viral communicable diseases; Z79.899 Other long term (current) drug therapy
CPT/HCPCS: 71046; 80053; 83690; 85025; 87502; 87635; 93005; 99283

== ENCOUNTER → 2023-09-28 13:54 | Outpatient (BNV) | payer SELFPAY | PROVIDERS: Emergency Provider Internal Medicine; PCP Internal Medicine; Visit Provider Internal Medicine | DX: R53.1 Weakness (principal) | CPT/HCPCS: 93010 ==

== ENCOUNTER 2023-10-09 15:13 | Outpatient (REF) | payer MEDICAID, OTHER, SELFPAY ==
[2023-10-09 17:28] LABS: MANUAL DIFF FLAG NO
[2023-10-09 17:50] LABS: Basophils Absolute Auto 0.1 X10*3/uL (0.0-0.2); Basophils Percent Auto 0.6 % (0-2); Eosinophils Absolute Auto 0.1 X10*3/uL (0.0-0.4); Eosinophils Percent Auto 1.3 % (0-4); Hematocrit 31.3 % (37.0-47.0); Hemoglobin 10.4 g/dl (12.0-16.0); Imm Gran Abs Auto 0.03 X10*3/uL (0.00-0.03); Imm Gran Pct Auto 0.3 % (0.0-0.4); Immature Retic Fraction 20.4 % (3.0-15.9); Lymphocytes Absolute Auto 2.4 X10*3/uL (1.2-4.9); Lymphocytes Percent Auto 25.5 % (20-40); Mean Corpuscular HGB Conc 33.2 g/dl (31.0-35.0); Mean Corpuscular Hemoglobin 30.1 pg (27.0-33.0); Mean Corpuscular Volume 90.5 fL (80.0-98.0); Mean Platelet Volume 10.1 fL (9.4-12.3); Monocytes Absolute Auto 0.5 X10*3/uL (0.1-1.2); Monocytes Percent Auto 5.4 % (2-11); Neutrophils Absolute Auto 6.3 x10*3/uL (2.0-8.3); Neutrophils Percent Auto 66.9 % (45-73); Platelet Count 301 X10*3/uL (160-400); Red Blood Count 3.46 X10*6/uL (4.20-5.50); Red Cell Distribution Width 13.2 % (11.0-16.0); Retic HGB Equivalent 32.9 pg (30.0-35.0); Reticulocytes Absolute 0.105 X10*6/uL (0.026-0.095); White Blood Count 9.4 X10*3/uL (4.8-10.8)
[2023-10-09 17:55] LABS: Iron 32 mcg/dL (30-160); Percent Iron Saturation 9 % (15-50); Total Iron Binding Capacity 342 mcg/dL (228-428); Unsaturated Iron Binding 310 ug/dL
[2023-10-09 18:11] LABS: Ferritin 9 ng/mL (10-250)
== END 2023-10-09 15:14 | disposition home or self-care (01) ==
LOC: HO.CHCLDS 15:13
PROVIDERS: Visit Provider Registered Nurse
DX: N92.4 Excessive bleeding in the premenopausal period (principal); R53.83 Other fatigue
CPT/HCPCS: 36415; 82728; 83540; 85025; 85045

== ENCOUNTER 2025-09-09 11:57 | Outpatient (REF) | payer MEDICAID, OTHER, SELFPAY ==
--- OUTSIDE RECORDS SUMMARY | 2025-09-09 11:15 | XMS_ITS | Encounter Summary ---
Author Organization [employer] [facility] Address [address] [place] [id number] Care Team Providers Care Mapping Editor Name Role Phone Latasha Bowen MD Primary Care Provider Reason for Referral * Consultation (Routine) - Closed Specialty Diagnoses / Procedures Referred By Papo chandra Referred To Contact Physical Therapy Diagnoses Cervicogenic headache Hot flashes Latasha Bowen MD [address] [place] [address] Phone: tel: fax: [facility] PT/OT/Speech [address] [place] [phone] Phone: tel: fax: Referral ID Status Reason Start Date Expiration Date V isits Requested Visits Authorized [id number] Closed Specialty Services Required 09/09/2025 09/09/2026 1 1 Reason for Visit * Reason Comments Migraine Encounter Details Date Type Department Care Team ([facility] Contact Info) Description 09/09/2025 11:15 AM EST Office Visit [facility] [address] [place], [place] [phone] Latasha Bowen MD [address] [place], [place] [phone] Cervicogenic headache (Primary Dx); Hot flashes; Forgetfulness Social History Tobacco Use Types Packs/Day Years Used Date Smoking Tobacco: Never Passive Smoke Exposure: Never Smokeless Tobacco: Never Comments Unknown Sex and Gender Information Value Date Recorded Sex Assigned at Female 07/11/2022 10:39 AM EDT Legal Sex Female 10:39 AM EDT Gender Identity Female 07/11/2022 10:39 AM EDT Sexual Orientation Straight 07/11/2022 10 :39 AM EDT documented as of this encounter Last Filed Vital Signs Vital Sign Reading Time Taken Comments Blood Pressure 157/93 09/09/2025 11:29 AM EST Pulse 98 09/09/2025 11:29 AM EST Temperature - - Respiratory Rate 20 09/09/2025 11:29 AM EST Oxygen Saturation 96% 09/09/2025 11:29 AM EST Inhaled Oxygen Concentration - - Weight 84.4 kg (186 lb) 09/09/2025 11:29 AM EST Height 172.7 cm (5' 8 ) 09/09/2025 11:29 AM EST Body Mass Index 28.28 09/09/2025 11:29 AM EST documented in this encounter Progress Notes * Latasha Bowen MD - 09/09/2025 11:15 AM EST SUBJECTIVE Evelin Stevens is a 45 y.o. female who presents for Migraine. Migraine Associated symptoms include neck pain. Pertinent negatives include no coughing. Evelin Stevens, 45-year-old female - History of migraines and daily neck pain radiating to upper back, previously evaluated 2 years ago with improvement, recurrence of symptoms 2 months ago - Neck pain present every day, located in neck and high back - Previous treatment with cyclobenzaprine, partial relief - Daily hot flashes for past 2 months, occurring up to 4 times per hour, described as severe - Reports forgetfulness of small things for past 2 months, requires making notes to remember tasks - Denies tiredness Problem List[1] Allergies[2] Medications Ordered Prior to Encounter[3] Review of Systems Constitutional: Negative for appetite change, chills and diaphoresis. Respiratory: Negative for cough, choking and shortness of breath. Cardiovascular: Negative for leg swelling. Musculoskeletal: Positive for myalgias and neck pain. Neurological: Positive for headaches. Psychiatric/Behavioral: The patient is nervous/anxious. Hot flashes OBJECTIVE Vitals: 09/09/25 1129 BP: (!) 157/93 BP Location: Left arm Patient Position: Sitting BP Cuff Size: Adult Pulse: 98 Resp: 20 SpO2: 96% Weight: 186 lb (84.4 kg) Height: 5' 8 (1.727 m) Physical Exam Constitutional: General: She is not in acute distress. Appearance: Normal appearance. She is not ill-appearing, toxic-appearing or diaphoretic. Cardiovascular: Rate and Rhythm: Normal rate. Pulmonary: Effort: Pulmonary effort is normal. Abdominal: Palpations: Abdomen is soft. Musculoskeletal: Cervical back: Spasms and tenderness present. Neurological: Mental Status: She is alert. Assessment/Plan Assessment/Plan Diagnoses and all orders for this visit: Cervicogenic headache - cyclobenzaprine (Flexeril) 10 MG tablet; Take 1 tablet (10 mg) by mouth 3 times daily. - Referral to Physical Therapy; Future Hot flashes - CBC auto differential; Future - Lipid Panel, Standard; Future - TSH with Reflex to Free T4; Future - Vitamin B12/Folate, Serum Panel; Future - cyclobenzaprine (Flexeril) 10 MG tablet; Take 1 tablet (10 mg) by mouth 3 times daily. - Referral to Physical Therapy; Future - PARoxetine (Paxil) 10 MG tablet; Take 1 tablet (10 mg) by mouth in the morning. Forgetfulness - CBC auto differential; Future - Comprehensive Metabolic Panel; Future - Lipid Panel, Standard; Future - TSH with Reflex to Free T4; Future - Vitamin B12/Folate, Serum Panel; Future Cervicogenic headache: - Cervicogenic headache with associated neck pain and upper back pain. - Prescribed medication for neck pain, to be taken up to three times daily. Recommended physical therapy. Scheduled follow-up in 4 weeks. Hot flashes: - Hot flashes attributed to perimenopausal symptoms. - Prescribed medication (antidepressant) for hot flashes, to be taken once daily. Advised continuation of medication for several weeks to assess efficacy. Scheduled follow-up in 4 weeks. - Risks and side effects: Discussed increased risk of breast cancer with hormone therapy; alternative non-hormonal treatment chosen. Forgetfulness: - Forgetfulness possibly related to menopause; other etiologies to be evaluated. - Ordered comprehensive blood work including thyroid function, liver and kidney function, electrolytes, vitamin B12, and cholesterol. Scheduled follow-up in 4 weeks to review results. This note was drafted using [employer] (Channel [employer]) technology. The patient/patient's guardian has been informed and has consented to the use of this technology: Yes [1] Patient Active Problem List Diagnosis Essential hypertension Migraine Excessive bleeding in premenopausal period [2] Allergies Allergen Reactions Seasonal Ic [Octacosanol] [3] Current Outpatient Medications on File Prior to Visit Medication Sig Dispense Refill cetirizine (ZyrTEC) 10 MG tablet TAKE ONE TABLET BY MOUTH ONCE DAILY NEEDED cetirizine (ZyrTEC) 10 MG tablet TAKE ONE TABLET EVERY DAY NEEDED 90 tablet 1 ferrous gluconate (Fergon) 324 (38 Fe) MG tablet TAKE 1 TABLET BY MOUTH MON MON, WED, MON ON EMPTY STOMACH WITH A FULL GLASS OF WATER OR ORANGE JUICE 12 tablet 0 fluticasone (Flonase) 50 MCG/ACT nasal spray Administer 1 spray into affected nostril(s) 2 times daily. lisinopril-hydroCHLOROthiazide 10-12.5 MG tablet Take 1 tablet by mouth Once daily. (For blood pressure) 90 tablet 2 methocarbamol (Robaxin) 750 MG tablet Take 1 tablet (750 mg) by mouth 3 times daily for 10 days. 30tablet 0 Omeprazole 20 MG tablet delayed-release Take 20 mg by mouth in the morning for 7 days. 7 tablet 0 SUMAtriptan (Imitrex) 50 MG tablet TAKE 1 TABLET BY MOUTH AT ONSET OF MIGRAINE. MAY REPEAT ONCE AFTER 2 HOURS IF NEEDED NO MORE THAN FOUR TABLETS IN 24 HOURS 15 tablet 5 topiramate (Topamax) 100 MG tablet Take 100 mg by mouth 2 times daily. No current facility-administered medications on file prior to visit. documented in this encounter Plan of Treatment Upcoming Encounters Date Type Department Care Team (Late st Contact Info) Description 10/08/2025 9:00 AM EST Office Visit [facility] [address] [place] [address] Latasha Bowen MD [address] [place] [phone] Pending Results Name Type Priority Associated Diagnoses Date /Time Comprehensive Metabolic Panel Lab Routine Forgetfulness 09/09/2025 12:00 PM EST Lipid Panel, Standard Lab Routine Hot flashes Forgetfulness 09/09/2025 12:00 PM EST Scheduled Orders Name Type Priority Associated Diagnoses Orde r Schedule TSH with Reflex to Free T4 Lab Routine Hot flashes Forgetfulness Expected: 09/09/2025 (Approximate), Expires: 09/09/2026 Vitamin B12/Folate, Serum Panel Lab Routine Hot flashes Forgetfulness Expected: 09/09/2025, Expires: 09/09/2026 Scheduled Referrals Name Type Priority Associated Diagnoses Orde r Schedule Referral to Physical Therapy Outpatient Referral Routine Cervicogenic headache Hot flashes Expected: 09/09/2025 (Approximate), Expires: 09/09/2026 documented as of this encounter Procedures Procedure Name Priority Date/Time Associated Diagnosis Comments CBC WITH AUTO DIFFERENTIAL Routine 09/09/2025 12:00 PM EST Hot flashes Forgetfulness LIPID PANEL, STANDARD Routine 09/09/2025 12:00 PM EST Hot flashes Forgetfulness COMPREHENSIVE METABOLIC PANEL Routine 09/09/2025 12:00 PM EST Forgetfulness documented in this encounter Results * (ABNORMAL) CBC auto differential (09/09/2025 12:00 PM EST) White Blood Count 8.2 4.8 - 10.8 X10*3/uL [facility] Red Blood Count 4.68 4.20 - 5.50 X10*6/uL [facility] Hemoglobin 13.4 12.0 - 16.0 g/dl [facility] Hematocrit 41.5 37.0 - 47.0 % [facility] Mean Corpuscular Volume 88.7 80.0 - 98.0 fL [facility] Mean Corpuscular Hemoglobin 28.6 27.0 - 33.0 pg [facility] Mean Corpuscular HGB Conc 32.3 31.0 - 35.0 g/dl [facility] Red Cell Distribution Width 14.0 11.0 - 16.0 % [facility] Platelet Count 342 160 - 400 X10*3/uL [facility] Mean Platelet Volume 9.9 9.4 - 12.3 fL [facility] Neutrophils Percent Auto 71.9 45 - 73 % [facility] Imm Gran Pct Auto 0.5(H) 0.0 - 0.4 % [facility] Lymphocytes Percent Auto 20.5 20 - 40 % [facility] Monocytes Percent Auto 5.8 2 - 11 % [facility] Eosinophils Percent Auto 0.7 0 - 4 % [facility] Basophils Percent Auto 0.6 0 - 2 % [facility] NRBC Pct Auto 0.0 0.0 - 0.2 /100WBC [facility] Neutrophils Absolute Auto 5.9 2.0 - 8.3 x10*3/uL [facility] Imm Gran Abs Auto 0.04(H) 0.00 - 0.03 X10*3/uL [facility] Lymphocytes Absolute Auto 1.7 1.2 - 4.9 X10*3/uL [facility] Monocytes Absolute Auto 0.5 0.1 - 1.2 X10*3/uL [facility] Eosinophils Absolute Auto 0.1 0.0 - 0.4 X10*3/uL [facility] Basophils Absolute Auto 0.1 0.0 - 0.2 X10*3/uL [facility] NRBC Abs Auto 0.000 0.0 - 0.012 X10*3/uL [facility] Blood Venous blood specimen / Unknown 09/09/2025 12:00 PM EST 09/09/2025 3:06 PM EST Latasha Bowen MD LAB BLOOD ORDERABLES Final Result Performing Organization Address City/State/[facility] Co de Phone Number [facility] [address] [place] [phone] documented in this encounter Visit Diagnoses Diagnosis Cervicogenic headache- Primary Headache Hot flashes Forgetfulness Other general symptoms documented in this encounter Care Teams Mapping Editor Relationship Specialty Start Date End Date Latasha Bowen MD [address] [place] [phone] PCP - General Internal Medicine 06/02/21 documented as of this encounter
[2025-09-09 15:11] LABS: MANUAL DIFF FLAG NO
[2025-09-09 15:19] LABS: Hematocrit 41.5 % (37.0-47.0); Hemoglobin 13.4 g/dl (12.0-16.0); Imm Gran Abs Auto 0.04 X10*3/uL (0.00-0.03); Imm Gran Pct Auto 0.5 % (0.0-0.4); Lymphocytes Absolute Auto 1.7 X10*3/uL (1.2-4.9); Mean Corpuscular HGB Conc 32.3 g/dl (31.0-35.0); Mean Corpuscular Hemoglobin 28.6 pg (27.0-33.0); Mean Corpuscular Volume 88.7 fL (80.0-98.0); NRBC Abs Auto 0.000 X10*3/uL (0.0-0.012); NRBC Pct Auto 0.0 /100WBC (0.0-0.2); Platelet Count 342 X10*3/uL (160-400); Red Blood Count 4.68 X10*6/uL (4.20-5.50); White Blood Count 8.2 X10*3/uL (4.8-10.8)
[2025-09-09 15:54] LABS: Alanine Aminotransferase 25 U/L (0-31); Albumin Level 4.9 g/dL (3.5-5.0); Alkaline Phosphatase 66 U/L (39-117); Anion Gap 13 (12-20); Aspartate Amino Transferase 30 U/L (5-31); Blood Urea Nitrogen 24 mg/dL (9-16); Calcium 10.2 mg/dL (8.4-10.2); Carbon Dioxide 27 mmol/L (22-29); Chloride 106 mmol/L (96-108); Cholesterol 313 mg/dL (<200); Estimated Glomerular Filt Rate > 60; HDL Cholesterol 62 mg/dL (>40); Potassium 4.3 mmol/L (3.3-5.1); Sodium 142 mmol/L (135-145); Total Protein 8.2 g/dL (6.5-8.0); Triglycerides 151 mg/dL (<150)
--- OUTSIDE RECORDS SUMMARY | 2025-09-09 16:01 | XMS_ITS | Encounter Summary ---
Author Organization [employer] [facility] Address [address] [place] [address] [address] [place] [address] Care Team Providers Care Pressing Machine Tender Name Role Phone Latasha Bowen MD Primary Care Provider [phone] Encounter Details Date Type Department Care Team (Late st Contact Info) Description 02/23/2023 Orders Only [facility] [address] [place] [address] Nubia Castillo LPN Social History Tobacco Use Types Packs/Day Years Used Date Smoking Tobacco: Never Assessed Comments Unknown Sex and Gender Information Value Date Recorded Sex Assigned at Female 07/11/2022 10:39 AM EDT Legal Sex Female 10:39 AM EDT Gender Identity Female 07/11/2022 10:39 AM EDT Sexual Orientation Straight 07/11/2022 10 :39 AM EDT documented as of this encounter Plan of Treatment Upcoming Encounters Date Type Department Care Team (Late st Contact Info) Description 10/08/2025 9:00 AM EST Office Visit [facility] [address] [place] [address] Latasha Bowen MD [address] [place] [address] documented as of this encounter Visit Diagnoses Not on filedocumented in this encounter Care Teams Pressing Machine Tender Relationship Specialty Start Date End Date Latasha Bowen MD [address] [place] [address] PCP - General Internal Medicine 06/02/21 documented as of this encounter
--- OUTSIDE RECORDS SUMMARY | 2025-09-09 16:01 | XMS_ITS | Clinical Summary ---
Author Organization [employer] Address [address] [place] [address] 7[address] [place] [address] Care Team Providers Care Kaiawhina Kohanga Reo Name Role Phone Latasha Bowen MD Primary Care Provider Allergies Active Allergy Reactions Criticality Noted Date Comments Octacosanol 02/01/2024 Medications cetirizine (ZyrTEC) 10 MG tablet TAKE ONE TABLET BY MOUTH ONCE DAILY NEEDED 3 Active topiramate (Topamax) 100 MG tablet Take 100 mg by mouth 2 times daily. 3 Active Omeprazole 20 MG tablet delayed-releaseIn dications:Excessi ve bleeding in premenopausal period Take 20 mg by mouth in the morning for 7 days. 7 tablet 4 Active SUMAtriptan (Imitrex) 50 MG tabletIndications :Migraine without aura, not intractable, without status migrainosus TAKE 1 TABLET BY MOUTH AT ONSET OF MIGRAINE. MAY REPEAT ONCE AFTER 2 HOURS IF NEEDED NO MORE THAN FOUR TABLETS IN 24 HOURS 15 tablet 5 4 Active lisinopril-hydroC HLOROthiazide 10-12.5 MG tabletIndications :Essential hypertension Take 1 tablet by mouth Once daily. (For blood pressure) 90 tablet 2 4 Active ferrous gluconate (Fergon) 324 (38 Fe) MG tabletIndications :Excessive bleeding in premenopausal period TAKE 1 TABLET BY MOUTH MON MON, WED, MON ON EMPTY STOMACH WITH A FULL GLASS OF WATER OR ORANGE JUICE 12 tablet 4 Active fluticasone (Flonase) 50 MCG/ACT nasal spray Administer 1 spray into affected nostril(s) 2 times daily. 2 Active cetirizine (ZyrTEC) 10 MG tablet TAKE ONE TABLET EVERY DAY NEEDED 90 tablet 1 4 Active methocarbamol (Robaxin) 750 MG tablet Take 1 tablet (750 mg) by mouth 3 times daily for 10 days. 30 tablet 4 Active cyclobenzaprine (Flexeril) 10 MG tabletIndications :Cervicogenic headache,Hot flashes Take 1 tablet (10 mg) by mouth 3 times daily. 30 tablet 09/09/2025 12:09 PM EST 5 09/19/19 26 Active PARoxetine (Paxil) 10 MG tabletIndications :Hot flashes Take 1 tablet (10 mg) by mouth in the morning. 30 tablet 11 09/09/2025 12:09 PM EST 5 09/09/20 26 Active Active Problems Problem Noted Date Diagnosed Date Excessive bleeding in premenopausal period 10/12 Assessment & Plan (10/12/2023 7:35 PM EST): -Approx 6 weeks with persistent menstrual bleeding (+) clots since 08/25/23 -To assist with decreasing blood loss: ibuprofen 800mg TID x 7 days. Meds SE and safety reviewed. Encouraged to take with food -To help increase iron levels: cont ferrous gluconate 3x/week (labs notable for ÓSCAR 10/09/23) -Pelvic US pending -Reviewed ED/urgent care precautions -Referral to [facility] SHADE MAKER placed for further eval Essential hypertension 10/02/2023 4 Overview (10/12/2023): -Continues with lisinopril-hydrochlorothiazide 10-12.5mg daily Assessment & Plan (10/12/2023 7:33 PM EST): Well controlled Migraine 10/02/2023 10/02/2023 Encounters Date Type Department Care Team Description 09/09/2025 11:15 AM EST Office Visit [facility] [address] [place] [address] Latasha Bowen MD Cervicogenic headache (Primary Dx); Hot flashes; Forgetfulness 09/09/2025 Travel 08/29/2025 Telephone [facility] [address] [place] [address] Latasha Bowen MD Nurse Triage from Last 3 Months Immunizations Immunization Administration Dates Next Due Influenza Injectable Quadriv alant Preservative Free IIV4 MDCK 07/18/2022 Influenza injectable quadriv alent preservative free 06/02/2021 Influenza, trivalent, adjuvanted 07/15/2015,08/11,08/13/2013 Moderna Covid-19 Vaccine 12+ 01/16/2021 Pfizer Covid-19 Vaccine 12+ 10/09/2020, Tdap 07/18/2022,03/13/2012 Social History Tobacco Use Types Packs/Day Years Used Date Smoking Tobacco: Never Passive Smoke Exposure: Never Smokeless Tobacco: Never Tobacco Cessation:Counseling Given: Not Answered Comments Unknown Sex and Gender Information Value Date Recorded Sex Assigned at Female 07/11/2022 10:39 AM EDT Legal Sex Female 10:39 AM EDT Gender Identity Female 07/11/2022 10:39 AM EDT Sexual Orientation Straight 07/11/2022 10 :39 AM EDT Last Filed Vital Signs Vital Sign Reading Time Taken Comments Blood Pressure 157/93 09/09/2025 11:29 AM EST Pulse 98 09/09/2025 11:29 AM EST Temperature 37.1 C (98.7 F) 01/01/2024 2:59 PM EDT Respiratory Rate 20 09/09/2025 11:29 AM EST Oxygen Saturation 96% 09/09/2025 11:29 AM EST Inhaled Oxygen Concentration - - Weight 84.4 kg (186 lb) 09/09/2025 11:29 AM EST Height 172.7 cm (5' 8 ) 09/09/2025 11:29 AM EST Body Mass Index 28.28 09/09/2025 11:29 AM EST Plan of Treatment Upcoming Encounters Date Type Department Care Team (Late st Contact Info) Description 10/08/2025 9:00 AM EST Office Visit [facility] [address] [place] [address] Latasha Bowen MD [address] [place] [address] Health Maintenance Due Date Last Done Comments CT Colonography 1978 Colonoscopy 1978 Colorectal Cancer Screening 1978 Depression Screening 1978 FIT DNA/Cologuard 1978 FIT 1978 FOBT 1978 SDOH Screening 1978 Sigmoidoscopy 1978 Disability Screening 1978 Alcohol/Substance Use Screening 1990 Family Planning (PISQ) 1993 Hepatitis C Screening 1996 Hepatitis B Vaccines (1 of 3 - 19+ 3-dose series) 1997 Mammogram 2018 Dental Oral Exam 08/04/2024 02/01/2024 Dental Prophylaxis 08/04/2024 02/01/2024 Dental X-Ray: Bitewings 02/01/2025 02/01/2024 COVID-19 Vaccine ( season) 2025 01/16/2021, 10/09/2020, 09/18/2020 Influenza Vaccine (#1) 2025 , 06/02/2021, 07/15/2015, Additional history exists Lipid Panel 06/02/2026 09/09/2025, 06/02/2021 Tobacco Screening 09/09/2026 09/09/2025 Dental X-Ray: Full Mouth 02/01/2027 02/01/2024 Zoster Vaccines (1 of 2) 2028 Cervical Cancer Screening 10/24/2028 HPV/Cotest 10/24/2028 10/24/2023, 08/24/2021 Pap Smear 10/24/2028 10/24/2023, 08/24/2021 DTaP/Tdap/Td Vaccines (3 - Td or Tdap) 07/18/2032 07/18/2022, 03/13/2012 RSV Patients and Patients Aged 60 years or older (1 - 1-dose 75+ series) 2053 HIV Screening Completed 06/02/2021 HIB Vaccines Aged Out No longer eligi ble based on patient's age to complete this topic HPV Vaccines Aged Out No longer eligi ble based on patient's age to complete this topic Hepatitis A Vaccines Aged Out No long er eligible based on patient's age to complete this topic IPV Vaccines Aged Out No longer eligi ble based on patient's age to complete this topic Meningococcal B Vaccine Aged Out No l onger eligible based on patient's age to complete this topic Meningococcal Vaccine Aged Out No keny dylon eligible based on patient's age to complete this topic Pneumococcal Vaccine: Pediatrics (0 to 5 Years) and At-Risk Patients (6 to 49) Years Aged Out No longer eligible based on patient's age to complete this topic RSV under 20 months Aged Out No longe r eligible based on patient's age to complete this topic Rotavirus Vaccines Aged Out No longer eligible based on patient's age to complete this topic Procedures Procedure Name Priority Date/Time Associated Diagnosis Comments LIPID PANEL, STANDARD Routine 09/09/2025 12:00 PM EST Hot flashes Forgetfulness COMPREHENSIVE METABOLIC PANEL Routine 09/09/2025 12:00 PM EST Forgetfulness CBC WITH AUTO DIFFERENTIAL Routine 09/09/2025 12:00 PM EST Hot flashes Forgetfulness PROPHYLAXIS - ADULT Routine 02/01/2024 2 :00 PM EDT INTRAORAL - COMPLETE SERIES OF RADIOGRAPHIC IMAGES Routine 02/01/2024 2:00 PM EDT COMPREHENSIVE ORAL EVALUATION - NEW OR ESTABLISHED PATIENT Routine 02/01/2024 2:00 PM EDT HM PAP/HPV Routine 10/24/2023 12:00 AM EST HIV 1/2 ANTIGEN/ANTIBODY, FOURTH GENERATION W/RFL Routine 06/02/2021 11:51 AM EDT from Last 3 Months or Most Recently Relevant to Health Maintenance Results * (ABNORMAL) CBC auto differential (09/09/2025 12:00 PM EST) White Blood Count 8.2 4.8 - 10.8 X10*3/uL [facility] Red Blood Count 4.68 4.20 - 5.50 X10*6/uL [facility] Hemoglobin 13.4 12.0 - 16.0 g/dl [facility] Hematocrit 41.5 37.0 - 47.0 % [facility] Mean Corpuscular Volume 88.7 80.0 - 98.0 fL [facility] Mean Corpuscular Hemoglobin 28.6 27.0 - 33.0 pg [facility] Mean Corpuscular HGB Conc 32.3 31.0 - 35.0 g/dl [facility] Red Cell Distribution Width 14.0 11.0 - 16.0 % [facility] Platelet Count 342 160 - 400 X10*3/uL [facility] Mean Platelet Volume 9.9 9.4 - 12.3 fL [facility] Neutrophils Percent Auto 71.9 45 - 73 % [facility] Imm Gran Pct Auto 0.5(H) 0.0 - 0.4 % [facility] Lymphocytes Percent Auto 20.5 20 - 40 % [facility] Monocytes Percent Auto 5.8 2 - 11 % [facility] Eosinophils Percent Auto 0.7 0 - 4 % [facility] Basophils Percent Auto 0.6 0 - 2 % [facility] NRBC Pct Auto 0.0 0.0 - 0.2 /100WBC [facility] Neutrophils Absolute Auto 5.9 2.0 - 8.3 x10*3/uL [facility] Imm Gran Abs Auto 0.04(H) 0.00 - 0.03 X10*3/uL [facility] Lymphocytes Absolute Auto 1.7 1.2 - 4.9 X10*3/uL [facility] Monocytes Absolute Auto 0.5 0.1 - 1.2 X10*3/uL [facility] Eosinophils Absolute Auto 0.1 0.0 - 0.4 X10*3/uL [facility] Basophils Absolute Auto 0.1 0.0 - 0.2 X10*3/uL [facility] NRBC Abs Auto 0.000 0.0 - 0.012 X10*3/uL [facility] Blood Venous blood specimen / Unknown 09/09/2025 12:00 PM EST 09/09/2025 3:06 PM EST us Latasha Bowen MD LAB BLOOD ORDERABLES Final Result [facility] [address] [place] [phone] * HM PAP/HPV (10/24/2023 12:00 AM EST) Pap Smear 1. NILM 1. NILM HPV Not Detected Undetected, Indeterminat e, Quantitative , Not Detected Narrative Manju Peters - 10/24/2023 12:00 AM EST See care everywhere labs 10/24/2023 Historical Provider HEALTH MAINTENANCE Edited Result - Final * HIV 1/2 ANTIGEN/ANTIBODY,FOURTH GENERATION W/RFL (06/02/2021 11:51 AM EDT) HIV-1/2 ANTIGEN AND ANTIBODIES, 4TH GENERATION W/ REFLEX NON-REACT JASMIN NON-REACT JASMIN [facility] Comment: HIV-1 antigen and HIV-1/HIV-2 antibodies were not detected. There is no laboratory evidence of HIV infection. PLEASE NOTE: This information has been disclosed to you from records whose confidentiality may be protected by state law. If your state requires such protection, then the state law prohibits you from making any further disclosure of the information without the specific written consent of the person to whom it pertains, or as otherwise permitted by law. A general authorization for the release of medical or other information is NOT sufficient for this purpose. For additional information please refer to http://[email or web address]/faq/BEJ938 (This link is being provided for informational/ educational purposes only.) The performance of this assay has not been clinically validated in patients less than 2 years old. 06/02/2021 11:5 1 AM EDT Latasha Bowen MD LAB BLOOD ORDERABLES Final Result [facility] [address] from Last 3 Months or Most Recently Relevant to Health Maintenance Insurance [place] F[place] DENTAL-[facility] MEDICAID LIMITED ADULT DENTAL - HSN FULL (MEDICAID) Care Teams Kaiawhina Kohanga Reo Relationship Specialty Start Date End Date Latasha Bowen MD [address] [place] [id number] PCP - General Internal Medicine 06/02/21
--- OUTSIDE RECORDS SUMMARY | 2025-09-09 16:01 | XMS_ITS | Encounter Summary ---
Author Organization [employer] [facility] Address [address] [place] [address] 7 [place] [address] Care Team Providers Care Inspection Manager Name Role Phone Latasha Bowen MD Primary Care Provider Encounter Details Date Type Department Care Team (Latest Contact Info) Description 09/09/2025 Travel Social History Tobacco Use Types Packs/Day Years [...] Description 10/08/2025 9:00 AM EST Office Visit [facility] [address] [place] [address] Latasha Bowen MD [address] [place] [address] documented as of this encounter Visit Diagnoses Not on filedocumented in this encounter Care Teams Inspection Manager Relationship Specialty Start Date End Date Latasha Bowen MD [address] [place] [address] PCP - General Internal Medicine 06/02/21 documented as of this encounter
--- OUTSIDE RECORDS SUMMARY | 2025-09-09 16:01 | XMS_ITS | Encounter Summary ---
Author Organization [facility] Address [address] [place] [address] Care Team Providers Care Loan Secretary Name Role Phone Latasha Bowen Primary Care Provider + [phone] Reason for Visit * Reason Onset Date Comments Reschedule 12/27/2023 Encounter Details Date Type Department Care Team ([facility] Contact Info) Description 12/27/2023 Telephone [facility] - Second Floor [address] [place] [address] Telephone Intake, Staff Reschedule Social History Tobacco Use Types Packs/Day Years Used Date Smoking Tobacco: Never Smokeless Tobacco: Never Comments No Sex and Gender Information Value Date Recorded Sex Assigned at Female 10/23/2023 9:24 AM EST Legal Sex Female 10:43 AM EDT Gender Identity Female 10/23/2023 9:24 AM EST Sexual Orientation Not on file documented as of this encounter Miscellaneous Notes * Telephone Encounter - Binta Garcia - 12/27/2023 10:07 AM EDT Pt wants to reschedule her 01/15 ultrasound Please call [phone] documented in this encounter Plan of Treatment Not on file documented as of this encounter Visit Diagnoses Not on filedocumented in this encounter Care Teams Loan Secretary Relationship Specialty Start Date End Date Latasha Bowen [address] [place] [address] PCP - General Internal Medicine 04/01/22 documented as of this encounter
--- OUTSIDE RECORDS SUMMARY | 2025-09-09 16:01 | XMS_ITS | Encounter Summary ---
Author Organization [employer] [facility] Address [address] [place] [address] [place] [address] Care Team Providers Care Commercial Roofing Estimator Name Role Phone Latasha Bowen MD Primary Care Provider Encounter Details Date Type Department Care Team (Late st Contact Info) Description 02/05/2025 Orders Only [facility] [address] [place] [address] Manju Peters Social History Tobacco Use Types Packs/Day Years [...] Description 10/08/2025 9:00 AM EST Office Visit [facility] [address] [place] [address] Latasha Bowen MD [address] [place] [address] documented as of this encounter Procedures Procedure Name Priority Date/Time Associated Diagnosis Comments PAP/HPV Routine 10/24/2023 12:00 AM EST documented in this encounter Results * PAP/HPV (10/24/2023 12:00 AM EST) Pap Smear 1. NILM 1. NILM HPV Not Detected Undetected, Indeterminat e, Quantitative , Not Detected Narrative Manju Peters - 10/24/2023 12:00 AM EST See care everywhere labs 10/24/2023 us Historical Provider HEALTH MAINTENANCE Edited Result - Final documented in this encounter Visit Diagnoses Not on filedocumented in this encounter Care Teams Commercial Roofing Estimator Relationship Specialty Start Date End Date Latasha Bowen MD [address] [place] [phone] PCP - General Internal Medicine 06/02/21 documented as of this encounter
--- OUTSIDE RECORDS SUMMARY | 2025-09-09 16:01 | XMS_ITS | Encounter Summary ---
Author Organization [employer] [facility] Address [address] [place] [address] [place] [address] Care Team Providers Care Tenant Relations Coordinator Name Role Phone Latasha Bowen MD Primary Care Provider Encounter Details Date Type Department Care Team (Late st Contact Info) Description 02/13/2024 Orders Only [facility] [address] [place] [address] ProviderPhyllis MD Social History Tobacco Use Types Packs/Day Years [...] [facility] [address] [place] [address] Latasha Bowen MD [address] [place] [address] documented as of this encounter Procedures Procedure Name Priority Date/Time Associated Diagnosis Comments US PELVIS NON OB WITH TRANSVAGINAL Routine 02/12/2024 9:02 AM EDT documented in this encounter Results * US Pelvis Non OB with Transvaginal (02/12/2024 9:02 AM EDT) Anatomical Region Laterality Modality Pelvis Ultrasound us Historical Provider MD CARRILLO US PROCEDURES Final R esult documented in this encounter Visit Diagnoses Not on filedocumented in this encounter Care Teams Tenant Relations Coordinator Relationship Specialty Start Date End Date Latasha Bowen MD [address] [place] [id number] PCP - General Internal Medicine 06/02/21 documented as of this encounter
--- OUTSIDE RECORDS SUMMARY | 2025-09-09 16:01 | XMS_ITS | Clinical Summary ---
Author Organization [facility] Address [address] [place] [address] Care Team Providers Care Architecture Consultant Name Role Phone Latasha Bowen Primary Care Provider + [phone] Allergies No known active allergies Medications cetirizine (ZyrTEC) 10 mg tablet Take 10 mg by mouth daily as needed. 2 Active fluticasone propionate (FLONASE) 50 mcg/actuation nasal spray Administer 1 spray into each nostril 2 times a day. 2 Active SUMAtriptan (IMITREX) 50 mg tablet Take 50 mg by mouth 2 times a day as needed. 2 Active topiramate (TOPAMAX) 100 mg tablet TAKE ONE TABLET TWICE DAILY 2 Active medroxyPROGESTE Shadi (PROVERA) 10 mg tablet Take 1 tablet (10 mg total) by mouth once a day for 10 days. 10 tablet 4 Active methocarbamoL (ROBAXIN) 750 mg tablet Take 750 mg by mouth 4 (four) times daily. 4 Active Active Problems Problem Noted Date Diagnosed Date Abnormal uterine bleeding (AUB) 10/12/2023 Overview (10/24/2023): Last Assessment & Plan -Approx 6 weeks with persistent menstrual bleeding (+) clots since 08/25/23 -To assist with decreasing blood loss: ibuprofen 800mg TID x 7 days. Meds SE and safety reviewed. Encouraged to take with food -To help increase iron levels: cont ferrous gluconate 3x/week (labs notable for ÓSCAR 10/09/23) -Pelvic US pending -Reviewed ED/urgent care precautions -Referral to [facility] STRATEGIC PARTNERSHIP MANAGER placed for further eval Essential hypertension 10/02/2023 Overview (10/24/2023): -Continues with lisinopril-hydrochlorothiazide 10-12.5mg daily Last Assessment & Plan: Well controlled Migraine 10/02/2023 Family History Medical History Relation Name Comments Other Mother AUB in her 50s s/p hysterectomy [place] Breast cancer Neg Hx Cervical cancer Neg Hx Endometrial cancer Neg Hx Ovarian cancer Neg Hx Relation Name Status Comments Mother Social History Tobacco Use Types Packs/Day Years Used Date Smoking Tobacco: Never Smokeless Tobacco: Never Tobacco Cessation:Counseling Given: Not Answered Comments No Sex and Gender Information Value Date Recorded Sex Assigned at Female 10/23/2023 9:24 AM EST Legal Sex Female 10:43 AM EDT Gender Identity Female 10/23/2023 9:24 AM EST Sexual Orientation Not on file Last Filed Vital Signs Vital Sign Reading Time Taken Comments Blood Pressure 120/84 01/22/2024 8:33 AM EDT Pulse - - Temperature - - Respiratory Rate - - Oxygen Saturation - - Inhaled Oxygen Concentration - - Weight 87.5 kg (193 lb) 01/22/2024 8:33 AM EDT Height - - Body Mass Index - - Plan of Treatment Health Maintenance Due Date Last Done Comments Basic Metabolic Panel 1978 Cologuard 1978 Colon Cancer Screening 1978 Colonoscopy 1978 FOBT / Fit Test 1978 HPV and Pap Smear 1978 Hepatitis C Screening 1978 Sigmoidoscopy 1978 Hepatitis B Vaccines (1 of 3 - 19+ 3-dose series) 1997 Mammogram 2018 Alcohol/Substance Use Screening 09/11/2024 Depression Screening and Follow-Up 09/11/2024 Social Drivers of Health Annual Screening 09/11/2024 Influenza Vaccine (#1) 2025 2, 06/02/2021 COVID-19 Vaccine (2024-2 6 season) 2025 01/16/2021, 10/09/2020, 09/18/2020 Cervical Cancer Screening 10/24/2026 Pap Smear 10/24/2026 10/24/2023 DTaP,Tdap,and Td Vaccines (3 - Td or Tdap) 07/18/2032 07/18/2022, 03/13/2012 HIV Screening Completed 06/02/2021, 06/02/2021 Pneumococcal Vaccine: Pediatric (0-5 Years) and At-Risk Patients (6-50 Years) Aged Out No longer eligible based on patient's age to complete this topic Procedures * Due to [employer] law, this organization might not be sharing negative HIV tests. Procedure Name Priority Date/Time Associated Diagnosis Comments PAP Routine 10/24/2023 11:12 AM EST Cervical cancer screening from Last 3 Months or Most Recently Relevant to Health Maintenance Results * Due to [facility] law, this organization might not be sharing negative HIV tests. * Pap (10/24/2023 11:12 AM EST) Specimen Adequacy Satisfactory for evaluation [facility] 4 3:27 PM EST [email or web address] Pathologist Cytology Interpretation Negative for intraepithelial lesion or malignancy. [facility] 4 3:27 PM EST [email or web address] at 1527 EST Comment:This is the result o f a morphological screening test with an inherent possibility of a false negative interpretation. [employer] Machine Operator Statement This Pap test was examined by the [facility], [employer], [place], [place]. This Pap test was examined in accordance with the [facility] Cytopathology Laboratory written policy, which incorporates all CLIA mandates. Current screening guidelines can be found in [place]: A Cancer Journal for Clinicians 2020;70:321-346. Current ASCCP management guidelines for abnormal Pap tests are published in the Journal Lower Genital Tract Disease Volume 2020;24:102-131. [facility] 4 3:27 PM EST [email or web address] Clinical History Screening [facility] 4 3:27 PM EST [email or web address] Resulting Agency Case was signed out at [facility], Department of Pathology, [facility] CLIA [id number] [facility] 4 3:27 PM EST [facility] Report Header Gynecologic Cytology Report Case: [id number] Authorizing Provider: Rod Apple MD Collected: 10/24/2023 1112 Ordering Location: [facility] Received: 10/24/2023 1239 [facility] Obstetrics and Gynecology First Screen: Greg Reinoso Pathologist: Terri Brian MD Specimen: Screening [facility] Pap, Cervix/Endocervix 4 3:27 PM EST [email or web address] Brushing Cervix uteri structure / Unknown Non-Blood Collection / Unknown 10/24/2023 11:12 AM EST 10/24/2023 12:39 PM EST us Rod Apple MD LAB PATHOLOGY/CYTOLOGY ORDE JAGDISH Final Result [facility] [address] [place] [address] from Last 3 Months or Most Recently Relevant to Health Maintenance Insurance [facility] [id number] HSNO/FREE CARE Care Teams Architecture Consultant Relationship Specialty Start Date End Date Latasha Bowen [address] [place] [address] PCP - General Internal Medicine 04/01/22
[2025-09-09 16:20] LABS: Folate 18.2 ng/mL (> or = 4.0); Vitamin B12 1509 pg/mL (200-900)
== END 2025-09-09 11:58 | disposition home or self-care (01) ==
LOC: HO.CHCLDS 11:57
PROVIDERS: Visit Provider Internal Medicine
DX: R23.2 Flushing (principal); R68.89 Other general symptoms and signs
CPT/HCPCS: 36415; 80053; 80061; 82607; 82746; 84443; 85025